=== PATIENT | female | born 2000 | race Caucasian/White ===

== ENCOUNTER 2023-06-04 08:35 | Outpatient (CLI) | payer BC, SELFPAY ==
[2023-06-04 20:06] LABS: Chlamydia DNA Amplified* NOT DETECTED (No Detected); GC DNA Amplified* NOT DETECTED (No Detected)
== END 2023-06-04 08:36 | disposition home or self-care (01) ==
LOC: NFLDREF 09:00
PROVIDERS: PCP Pediatrics; Visit Provider Obstetrics & Gynecology
DX: Z11.3 Encounter for screening for infections with a predominantly sexual mode of transmission (principal)
CPT/HCPCS: 87491; 87591

== ENCOUNTER 2024-06-05 08:44 | Outpatient (CLI) | payer BC, SELFPAY ==
[2024-06-05 14:51] LABS: Chlamydia DNA Amplified* NOT DETECTED (No Detected); GC DNA Amplified* NOT DETECTED (No Detected)
[2024-06-07 06:25] LABS: HPV Source Cervical; HPV, High Risk by TMA Not Detected
== END 2024-06-05 08:45 | disposition home or self-care (01) ==
PROVIDERS: PCP Pediatrics; Visit Provider Obstetrics & Gynecology
DX: Z12.4 Encounter for screening for malignant neoplasm of cervix (principal); Z11.3 Encounter for screening for infections with a predominantly sexual mode of transmission; Z11.51 Encounter for screening for human papillomavirus (HPV)
CPT/HCPCS: 87491; 87591; 87624; 87625; 88141; 88142